=== PATIENT | female | born 1995 | race Hispanic/Latino ===

== ENCOUNTER 2017-08-01 18:28 | Emergency (ER) | payer MEDICAID, SELFPAY ==
[2017-08-01 19:33] LABS: Bilirubin Negative (Negative); Blood, Urine Negative (Negative); Clarity CLEAR (Clear); Glucose, Urine (Dipstick) Negative (Negative); Leukocyte Negative (Negative); Nitrite Negative (Negative); Protein, Urine (Dipstick) Negative (Neg-Trace); Urobilinogen 0.2 mg/dL (0.2-1.0)
[2017-08-01 19:35] LABS: Pregnancy Test - Urine (BHCG) Negative (Negative); Pregu Control Background? CLEAR/WHITE (CLR/WHITE); Pregu Control Bar Appear? YES (CONTROL BAR); Specific Gravity 1.006 (1.002-1.036); Specific Gravity, Urine 1.006 (1.002-1.036)
[2017-08-03 14:35] LABS: Chlamydia by PCR Not Detected (NotDetected); GC by PCR Not Detected (NotDetected)
== END 2017-08-01 20:30 | disposition home or self-care (01) ==
LOC: ERS 18:28
DX: N89.8 Other specified noninflammatory disorders of vagina (principal)
CPT/HCPCS: 81003; 81025; 87086; 87480; 87491; 87510; 87591; 87660; 99284

== ENCOUNTER 2017-08-05 07:36 | Outpatient (CLI) | payer MEDICAID | END 2017-08-05 07:37 | disposition home or self-care (01) | LOC: BICULT 07:36 | PROVIDERS: ATTEND Nurse Practitioner Women's Health | DX: R10.2 Pelvic and perineal pain (principal) | CPT/HCPCS: 76856 ==

== ENCOUNTER 2019-05-07 07:48 | Emergency (ER) | payer MEDICAID ==
[2019-05-07] MEDS ORDERED: Acetaminophen 500 MG TAB ONE (08:08)
[2019-05-07 08:58] LABS: Bilirubin Negative (Negative); Blood, Urine Negative (Negative); Clarity Clear (Clear); Glucose, Urine (Dipstick) Normal (Negative); Leukocyte Negative Leu/uL (Negative); Nitrite Negative (Negative); Protein, Urine (Dipstick) Negative (Neg-Trace); Urobilinogen Normal mg/dL (Less than 2)
[2019-05-07 09:06] LABS: Pregnancy Test - Urine (BHCG) POSITIVE (Negative); Pregu Control Background? CLEAR/WHITE (CLR/WHITE); Pregu Control Bar Appear? YES (CONTROL BAR); Specific Gravity 1.014 (1.002-1.036)
== END 2019-05-07 09:23 | disposition home or self-care (01) ==
LOC: ERS 07:48
DX: O99.89 Other specified diseases and conditions complicating pregnancy, childbirth and the puerperium (principal); M54.5 Low back pain; Z3A.09 9 weeks gestation of pregnancy
CPT/HCPCS: 81003; 81025; 99284

== ENCOUNTER 2019-12-03 14:18 | Day surgery (SDC) | payer OTHER ==
[2019-12-03 14:54] VITALS: BMI 32.4
[2019-12-03 15:04] VITALS: BP 127/71; TEMP 98.5
[2019-12-03] MEDS ORDERED: hydrALAZINE 20 MG/ML VIAL SLOW IVP PRN (15:35)
--- NOTE | 2019-12-03 16:09 | PDOC.FPROB ---
FMR OB H&P: HPI - History of Present Illness Chief Complaint: Low Fluid Indentification: 24 yo @ 36.3 by 13.1 wk US History of Present Illness: Pt presents to L&D after an US at the clinic was concerning for low amniotic fluid. Pt reports that she is feeling well and that she is not experiencing any contractions. She denies PHAM, blurred vision, abdominal pain, edema. Pt endorses movement. Denies LOF, vaginal bleeding, dysuria. Primary Care Physician: Heather Iraheta FMR OB H&P: Current - Care : 2 Para: 1 Gestational age: 36.3 Due date: 12/28/19 Dating Criteria: 13.1 wk sono Course/Complications: complicated by well-controlled chronic HTN, obesity, and history of PreE in previous - OB Labs Blood type: O RH: positive Antibody Screen: negative HIV: negative RPR: negative HepBsAg: negative Rubella: immune Gonorrhea: negative Chlamydia: negative 1 hour gtt: 136 GBS: negative H&H: 12.3/34.8 (11/12/2019) Platelets: 271 (11/12/2019) FMR OB H&P: History - Past Medical History PMH: HTN - OB History OB History: Normal at 41 wks - [facility] [facility] History [facility] History: Periods: irregular Last Pap: normal (08/2016) STIs: hx of chlamydia in 2017 Age of menarche: 11 yrs - Family History Family History: HTN FMR OB H&P: Medications - Current Allergies/Adverse Reactions: Allergies Allergy/AdvReac Type Severity Reaction Status Date / Time No Known Allergies Allergy Verified 12/03/19 14:52 FMR OB H&P: ROS - Review of Systems General: denies: fever/chills Eyes: denies: vision changes Cardiovascular: denies: chest pain Respiratory: denies: shortness of breath Gastrointestinal: denies: abdominal pain Genitourinary (Female): denies: dysuria, vaginal discharge, vaginal pain, vaginal bleeding, contractions Musculoskeletal: denies: swelling FMR OB H&P: Vital Signs - Maternal Vital signs: Vital Signs - First Documented Temp Pulse Resp BP Pulse Ox 98.5 F 86 20 127/71 99 12/03/19 15:02 12/03/19 15:02 12/03/19 15:02 12/03/19 15:02 12/03/19 15:02 - Heart Tones Variability: moderate Acceleration: present Deceleration: absent FMR OB H&P: Physical Exam - Physical Exam General: NAD, awake, alert and oriented HEENT: normocephalic and atraumatic, PERRLA Heart: RRR, normal S1/S2, no murmurs/rubs/gallops, no edema General: CTAB, no respiratory distress, good air movement, no rales/rhonchi, no wheezing, no retractions Abdomen: soft, gravid, non-tender, bowel sound present, no masses Neurological: cranial nerves II through XII intact, sensation to pain,touch and proprioception grossly normal, no focal deficit Skin: no rash, no jaundice Psychiatric: normal mood and affect FMR OB H&P: Results - Imaging Imaging: BPP: 8/8 ALEKS 10.8 Vertex Anterior Placenta FMR OB H&P: A/P - Problem List (1) Chronic hypertension Status: Acute Code(s): I10 - ESSENTIAL (PRIMARY) HYPERTENSION (2) Status: Acute Disposition: 24 yo @ 36.3 wga by 13.1 wk sono who presents from clinic with concerns for oligo Plan: Concerns for Oligo: - Clinic sono concerning for low fluid, so pt was sent to L&D - NST showed reactive strip - Vital signs within normal limits - BPP ordered and was 8/8 with an ALEKS of 10.8 - No s/s of active labor Chronic HTN and hx of PreE in previous - continue routine care - BP within normal range Dispo: BPP 8/8, normal ALEKS, d/c home with labor precautions Discussion: Date/Time: 12/03/19 4247 This H&P was discussed with Dr. Beltran and Dr. Lester who agree with the above documentation and plan. Addendum - Attending - Attending Attestation Date/Time: 12/04/19 1528 I personally evaluated the patient and discussed the management with Dr. Peng. I agree with the History, Examination, Assessment and Plan documented above with any addition or exceptions noted below. Reassuring status. Dc home with return precautions. Has induction date.
--- NOTE | 2019-12-03 16:22 | ULT ---
Exam: Nonstress biophysical profile HISTORY: Oligohydramnios. COMPARISON: none FINDINGS: presentation: Vertex Placenta: Anterior Amniotic fluid index 10.8 cm heart tones 131 bpm Nonstress biophysical profile: tone 2 breathing 2 movements 2 Amniotic fluid 2 Total score 8 out of 8 IMPRESSION: Nonstress biophysical profile with a total score 8 out of 8. Verbal communication w as given to Dr. Peng via the store hand 12/03/2019 at 4:17 PM Code CR
== END 2019-12-03 16:30 | disposition home or self-care (01) ==
LOC: L&D/OP 14:18
PROVIDERS: ATTEND Emergency Medicine
DX: O41.03X0 Oligohydramnios, third trimester, not applicable or unspecified (principal); O10.013 Pre-existing essential hypertension complicating pregnancy, third trimester; O99.213 Obesity complicating pregnancy, third trimester; E66.9 Obesity, unspecified; Z3A.36 36 weeks gestation of pregnancy
CPT/HCPCS: 76819

== ENCOUNTER 2019-12-11 06:34 | Outpatient (CLI) | payer MEDICAID, OTHER ==
[2019-12-12 12:37] LABS: SARS-CoV-2 MS2 Positive; SARS-CoV-2 N Gene Negative; SARS-CoV-2 S Gene Negative; SARS-CoV-2 orf1ab Negative
== END 2019-12-11 06:35 | disposition home or self-care (01) ==
LOC: LABSCS 06:34
PROVIDERS: ATTEND Family Medicine
DX: Z01.812 Encounter for preprocedural laboratory examination (principal); Z11.59 Encounter for screening for other viral diseases
CPT/HCPCS: 87635; U0003

== ENCOUNTER 2019-12-14 18:00 | Inpatient (IN) | payer OTHER ==
[2019-12-14 21:45] VITALS: BMI 32.7
[2019-12-14] MEDS ORDERED: Ondansetron PF 4 MG/2 ML Vial IVP PRN (22:28)
[2019-12-14] MEDS ORDERED: Misoprostol 200 MCG TAB PR PRN (22:28)
[2019-12-14] MEDS ORDERED: Lidocaine 1% (PF) 30 ML VIAL SC PRN (22:28)
[2019-12-14] MEDS ORDERED: Ibuprofen 800 MG TAB PO PRN (22:28)
[2019-12-14] MEDS ORDERED: Carboprost 250 MCG/ML AMP IM PRN (22:28)
[2019-12-14] MEDS ORDERED: Promethazine HCl 25 MG/ML VIAL IM PRN (22:28)
[2019-12-14] MEDS ORDERED: hydrALAZINE 20 MG/ML VIAL SLOW IVP PRN (22:28)
[2019-12-14] MEDS ORDERED: Diphenoxylate HCl/Atropine Tablet PO PRN ×2 (22:28)
[2019-12-14] MEDS ORDERED: Butorphanol Tartrate 1 MG/ML VIAL SLOW IVP PRN (22:28)
[2019-12-14] MEDS ORDERED: Acetaminophen 500 MG TAB PO PRN (22:28)
[2019-12-14] MEDS ORDERED: Methylergonovine 0.2 MG/ML VIAL IM PRN (22:28)
[2019-12-14] MEDS ORDERED: Misoprostol 100 MCG TAB VAG SCH (22:45)
[2019-12-14 23:11] LABS: Hemoglobin 12.6 g/dL (12.0-16.0); Mean Corpuscular Hemoglobin 30.2 pg (27.0-31.0); Mean Corpuscular Volume 86.2 fL (78.0-98.0); Mean Platelet Volume 9.6 fL (7.4-10.4); Platelet Count 234 thou/uL (130-400); RBC Distribution Width 10.9 % (11.5-14.5); Red Blood Cell (RBC) Count 4.19 mill/uL (4.20-5.40)
[2019-12-14] MEDS: Lactated Ringer's 1,000 ML IV SCH (23:11)
--- NOTE | 2019-12-14 23:12 | PDOC.FPROB ---
FMR OB H&P: HPI - History of Present Illness Chief Complaint: mIOL History of Present Illness: 24 y/o @ 38 wks by 13.1 wk raheem presents to L&D for mIOL. Pt states that she has been diagnosed with chronic HTN and has not required treatment with medications. She regularly checks her BPs which runs in the 130s. Her last was complicated by pre-E however, pt denies having pre-E symptoms in this and currently. Pt endorses FM and states that she occasionally feels contractions. She denies VB, VD, and LOF. She had been following up with [facility] for monthly growths which have been normal. FMR OB H&P: Current - Care : 2 Para: 1 Gestational age: 38 Due date: 12/28/2019 Dating Criteria: LMP c/w 13.1 wk sono - OB Labs Blood type: O RH: positive Antibody Screen: negative HIV: negative RPR: negative HepBsAg: negative Rubella: immune Gonorrhea: negative Chlamydia: negative 1 hour gtt: 136 GBS: negative FMR OB H&P: History - Past Medical History PMH: cHTN, obesity - OB History OB History: 1 prior complicated by pre-E - [employer] History [employer] History: Hx of Chlamydia-2017 - Surgical History Sx History: None - Social History Social History: Denies ETOH, tobacco, drug use during . - Family History Family History: Grandparents- HTN FMR OB H&P: Medications - Current Home Medications: Medication Instructions Recorded Confirmed Type Aspirin [Ecotrin] 81 mg PO DAILY 12/14/19 12/14/19 History 21/Iron Fu/Folic Acid 1 tablet PO DAILY 12/14/19 12/14/19 History [ Complete Caplet] Allergies/Adverse Reactions: Allergies Allergy/AdvReac Type Severity Reaction Status Date / Time No Known Allergies Allergy Verified 12/14/19 21:37 FMR OB H&P: ROS - Review of Systems General: denies: fever/chills, fatigue Eyes: denies: vision changes, double vision Cardiovascular: denies: chest pain, palpitation Respiratory: denies: cough, shortness of breath Gastrointestinal: denies: abdominal pain, nausea, vomiting, diarrhea Genitourinary (Female): denies: dysuria, hematuria, polyuria, vaginal discharge , vaginal pain, vaginal bleeding FMR OB H&P: Vital Signs - Maternal Vital signs: Vital Signs - First Documented Temp Pulse Resp BP 98.3 F 85 18 139/81 12/14/19 21:02 12/14/19 21:02 12/14/19 21:02 12/14/19 21:02 - Heart Tones Baseline: 150 Variability: moderate Acceleration: absent Deceleration: absent Category: category 1 [place] contractions every: no ctx FMR OB H&P: Physical Exam - Physical Exam General: NAD HEENT: normocephalic and atraumatic Heart: RRR, normal S1/S2, no edema General: CTAB, no respiratory distress, no rales/rhonchi, no wheezing Abdomen: soft, gravid Skin: good tugor Psychiatric: normal mood and affect - Pelvic Exam SVE: 0/Thick/High Presentation: cephalic FMR OB H&P: A/P - Problem List (1) Encounter for induction of labor Current Visit: Yes Status: Acute Code(s): Z34.90 - ENCNTR FOR SUPRVSN OF NORMAL , UNSP, UNSP TRIMESTER (2) Term Current Visit: Yes Status: Acute Code(s): Z34.90 - ENCNTR FOR SUPRVSN OF NORMAL , UNSP, UNSP TRIMESTER (3) Chronic hypertension Current Visit: Yes Status: Chronic Code(s): I10 - ESSENTIAL (PRIMARY) HYPERTENSION (4) History of chlamydia Current Visit: Yes Status: Acute Code(s): Z86.19 - PERSONAL HISTORY OF OTHER INFECTIOUS AND PARASITIC DISEASES (5) Obesity Current Visit: Yes Status: Acute Code(s): E66.9 - OBESITY, UNSPECIFIED Qualifiers: Obesity type: unspecified obesity type Obesity classification: adult class 1 (BMI 30 - 34.9) Serious obesity comorbidity presence: without serious comorbidity Body mass index: BMI 32.0-32.9 Qualified Code(s): E66.9 - Obesity, unspecified; Z68.32 - Body mass index (BMI) 32.0-32.9, adult Discussion: 24 y/o @ 38 wks by LMP c/w 13.1 wk sono presents to L&D for mIOL. ## Term , mIOL -mIOL d/t cHTN -SVE @ 22:20 0/Thick/High -SVE @ 23:15 same -cytotec started @23:15, will recheck in 3-4 hours -confirmed vertex position with bedside u/s -GBS negative -would like an epidural -FHT in 150s, mod variability, cat 1 -Hep C ordered, not done in labs ## chronic HTN -hx of pre-E in prior -SBPs in the 130s, has not required medication -denies pre-E symptoms -will continue to monitor closely - daily ASA during course ## Obesity -BMI 32.7 ## Hx of Chlamydia - hx of in 2017 -negative on labs Plan: Begin induction of labor with cytotec. This H&P was discussed with Dr. Crespo and Dr. Bartholomew who agree with the above documentation and plan. Addendum - Attending - Attending Attestation Date/Time: 12/15/19 9906 I personally evaluated the patient and discussed the management with Dr. Loya on 12/14/2019 I agree with the History, Examination, Assessment and Plan documented above with any addition or exceptions noted below - 24 yo @ 38 weeks with cHTN here for induction of labor. Denies any PHAM, visual changes or RUQ pain. (+) FM. Denies LOF/VB. Afebrile VSS. SVE 1.5/thick/-3/post. Cat 1 FHTs. A/P: 1) IUP@ 38 weeks with chronic HTN here for medical induction- Admit to L&D. Plan to place cytotec for cervical ripening. Recheck in 3-4 hours.
[2019-12-14 23:53] LABS: Hep B Surf Ag Non-Reactive S/CO (NonReactive); Syphilis Antibody Nonreactive (Nonreactive); Syphilis Antibody Index 0.02 S/CO (<1.00 Non-Reactive)
--- NOTE | 2019-12-15 02:27 | PDOC.OBLPN ---
FMR OB Labor PN: Subj - Interval History Interval History: Resting comfortably in bed. Feeling some cramping with ctx. FMR OB Labor PN: Obj - Maternal Vital signs: BP: 119/73 , ranging in the 130s/70s. FMR OB Labor PN: Exam - Pelvic Exam SVE: 1.5/0/-3 FMR OB Labor PN: Data - Labs Lab results: Laboratory Results - last 24 hr 12/14/19 12/14/19 12/14/19 23:01 23:01 23:01 WBC RBC Hgb Hct MCV MCH MCHC RDW Plt Count MPV Syphilis IgG/IgM Ab Nonreactive Hep Bs Antigen Non-Reactive Blood Type O POSITIVE Antibody Screen NEGATIVE 12/14/19 12/14/19 23:01 23:10 WBC 10.0 RBC 4.19 L Hgb 12.6 Hct 36.1 MCV 86.2 MCH 30.2 MCHC 35.0 RDW 10.9 L Plt Count 234 MPV 9.6 Syphilis IgG/IgM Ab Hep Bs Antigen Blood Type O POSITIVE Antibody Screen FMR OB Labor PN: A/P - Problem List (1) Encounter for induction of labor Current Visit: Yes Status: Acute Code(s): Z34.90 - ENCNTR FOR SUPRVSN OF NORMAL , UNSP, UNSP TRIMESTER (2) Term Current Visit: Yes Status: Acute Code(s): Z34.90 - ENCNTR FOR SUPRVSN OF NORMAL , UNSP, UNSP TRIMESTER (3) Chronic hypertension Current Visit: Yes Status: Chronic Code(s): I10 - ESSENTIAL (PRIMARY) HYPERTENSION (4) History of chlamydia Current Visit: Yes Status: Acute Code(s): Z86.19 - PERSONAL HISTORY OF OTHER INFECTIOUS AND PARASITIC DISEASES (5) Obesity Current Visit: Yes Status: Acute Code(s): E66.9 - OBESITY, UNSPECIFIED Qualifiers: Obesity type: unspecified obesity type Obesity classification: adult class 1 (BMI 30 - 34.9) Serious obesity comorbidity presence: without serious comorbidity Body mass index: BMI 32.0-32.9 Qualified Code(s): E66.9 - Obesity, unspecified; Z68.32 - Body mass index (BMI) 32.0-32.9, adult Discussion: Date/Time: 12/15/19 0225 24 y/o @ 38.1 wks by LMP c/w 13.1 wk raheem presents to L&D for mIOL. ## Term , mIOL -mIOL d/t cHTN -SVE @ 22:20 0/Thick/High -SVE @ 23:15 same, cytotec placed -SVE @ 02:20 1.5/0/-3 -confirmed vertex position with bedside u/s -GBS negative -would like an epidural -FHT: Cat 1, FHR 130s-140s, moderate variability -CTX Q2 min -Hep C ordered, not done in labs ## chronic HTN -hx of pre-E in prior -SBPs in the 130s, has not required medication -denies pre-E symptoms -will continue to monitor closely -daily ASA during course ## Obesity -BMI 32.7 ## Hx of Chlamydia - hx of in 2017 -negative on labs Plan: Will wait on next dose of cytotec until contractions space out. Recheck 4 in hours.
[2019-12-15] MEDS: Misoprostol 100 MCG TAB VAG SCH ×5 (05:13→23:07)
--- NOTE | 2019-12-15 05:55 | PDOC.OBLPN ---
FMR OB Labor PN: Subj - Interval History Interval History: Pt resting comfortably. FMR OB Labor PN: Data - Labs Lab results: Laboratory Results - last 24 hr 12/14/19 12/14/19 12/14/19 23:01 23:01 23:01 WBC RBC Hgb Hct MCV MCH MCHC RDW Plt Count MPV Syphilis IgG/IgM Ab Nonreactive Hep Bs Antigen Non-Reactive Blood Type O POSITIVE Antibody Screen NEGATIVE 12/14/19 12/14/19 23:01 23:10 WBC 10.0 RBC 4.19 L Hgb 12.6 Hct 36.1 MCV 86.2 MCH 30.2 MCHC 35.0 RDW 10.9 L Plt Count 234 MPV 9.6 Syphilis IgG/IgM Ab Hep Bs Antigen Blood Type O POSITIVE Antibody Screen FMR OB Labor PN: A/P - Problem List (1) Encounter for induction of labor Current Visit: Yes Status: Acute Code(s): Z34.90 - ENCNTR FOR SUPRVSN OF NORMAL , UNSP, UNSP TRIMESTER (2) Term Current Visit: Yes Status: Acute Code(s): Z34.90 - ENCNTR FOR SUPRVSN OF NORMAL , UNSP, UNSP TRIMESTER (3) Chronic hypertension Current Visit: Yes Status: Chronic Code(s): I10 - ESSENTIAL (PRIMARY) HYPERTENSION (4) History of chlamydia Current Visit: Yes Status: Acute Code(s): Z86.19 - PERSONAL HISTORY OF OTHER INFECTIOUS AND PARASITIC DISEASES (5) Obesity Current Visit: Yes Status: Acute Code(s): E66.9 - OBESITY, UNSPECIFIED Qualifiers: Obesity type: unspecified obesity type Obesity classification: adult class 1 (BMI 30 - 34.9) Serious obesity comorbidity presence: without serious comorbidity Body mass index: BMI 32.0-32.9 Qualified Code(s): E66.9 - Obesity, unspecified; Z68.32 - Body mass index (BMI) 32.0-32.9, adult Discussion: Date/Time: 12/15/19 0554 24 y/o @ 38.1 wks by LMP c/w 13.1 wk raheem presents to L&D for mIOL. ## Term , mIOL -mIOL d/t cHTN -SVE @ 22:20 0/Thick/High -SVE @ 23:15 same, cytotec placed -SVE @ 02:20 1.5/0/-3 -SVE @ 05:15 same, cytotec placed again, ctx had spaced out -confirmed vertex position with bedside u/s -GBS negative -would like an epidural -FHT: Cat 1, FHR 130s-140s, moderate variability -Hep C ordered, not done in labs ## chronic HTN -hx of pre-E in prior -SBPs in the 130s, has not required medication -denies pre-E symptoms -will continue to monitor closely -daily ASA during course ## Obesity -BMI 32.7 ## Hx of Chlamydia - hx of in 2017 -negative on labs Plan: Recheck in 3-4 hours.
[2019-12-15] MEDS: Lactated Ringer's 1,000 ML IV SCH ×3 (07:20→23:07)
[2019-12-15] MEDS ORDERED: NS w/ Oxytocin 10 units 500 ML IV SCH (10:00)
--- NOTE | 2019-12-15 10:42 | PDOC.LDPN ---
Labor & Delivery Progress Note - Subjective Subjective: comfortable - Objective Vital signs reviewed and normal: yes General: NAD, resting Uterine fundus: non tender Dilation: 1.5 Effacement: 50% Station: -3 FHT: category 1 Procedures: Cook balloon placed Plan: labor augmentation, pitocin for augmentation -: 24 y/o @ 38.1 wks by LMP c/w 13.1 wk sono presents to L&D for mIOL. 1. Term , mIOL due to cHTN Confirmed vertex position with bedside US. GBS negative. FHT was cat 1, FHR 130s -140s, moderate variability. Patient would like an epidural. -F/u hep C ordered, not done in labs -SVE @ 22:20 0/Thick/High -SVE @ 23:15 0/ThickHigh, cytotec placed -SVE @ 02:20 1.5/0/-3, next cytotec held due to tachysystole -SVE @ 05:15 1.5/0/-3, cytotec #2 placed, ctx spaced out -SVE @ 09:30 1.5/50/-3, cook balloon placed Cervix visualized with speculum. White discharge present. Cook balloon placed and 40cc administered to both U/V. Patient reported mild discomfort. Upon recheck at 1000, patient was resting without pain. Cat 1 strip with FHR in 130s and moderate variability. -10:00 Pit 10 units started 2. Chronic HTN SBPs in the 130s. Patient has not required medication. Has a hx of pre-E in prior . -Denies pre-E symptoms -Will continue to monitor closely -Daily ASA during course 3. Obesity BMI 32.7 4. Hx of Chlamydia Hx in 2017. Negative on labs Plan: Continue to monitor
[2019-12-15] MEDS: NS w/ Oxytocin 10 units 500 ML IV SCH (13:30)
--- NOTE | 2019-12-15 13:53 | PDOC.LDPN ---
Labor & Delivery Progress Note - Subjective Subjective: comfortable - Objective Vital signs reviewed and normal: yes General: NAD, resting Uterine fundus: non tender Dilation: 1.5 Effacement: 50% Station: -3 FHT: category 1 [place] contractions every: irregular Plan: continue plan of care -: 24 y/o @ 38.1 wks by LMP c/w 13.1 wk sono presents to L&D for mIOL. 1. Term , mIOL due to cHTN GBS negative. FHT was cat 1, FHR 130s-140s, moderate variability. Patient would like an epidural once experiencing increased pain. -13:50 Pit started -SVE unchanged, cook balloon in with 80 mL in both V/U -Continue serial cervical checks 2. Chronic HTN SBPs in the 130s. Patient has not required medication. Has a hx of pre-E in prior . -Denies pre-E symptoms -Will continue to monitor closely -Daily ASA during course 3. Obesity BMI 32.7 4. Hx of Chlamydia Hx in 2017. Negative on labs 5. Hep C unknown -Lab pending Plan: Continue to monitor
--- NOTE | 2019-12-15 17:28 | PDOC.LDPN ---
Labor & Delivery Progress Note - Subjective Subjective: comfortable (with 4/10 pain during contractions) - Objective Vital signs reviewed and normal: yes General: NAD, resting Uterine fundus: non tender FHT: category 1 [place] contractions every: 5 mins Other exam findings: Cook balloon in place Plan: continue plan of care -: 24 y/o @ 38.1 wks by LMP c/w 13.1 wk sono presents to L&D for mIOL. 1. Term , mIOL due to cHTN GBS negative. FHT was cat 1, FHR 130s-140s, moderate variability. Patient would like an epidural once experiencing increased pain. -Cook balloon in with 80 mL in both V/U -Continue serial cervical checks -Patient reports more painful contractions 4/10 2. Chronic HTN SBPs in the 130s. Patient has not required medication. Has a hx of pre-E in prior . -Denies pre-E symptoms -Will continue to monitor closely -Daily ASA during course 3. Obesity BMI 32.7 4. Hx of Chlamydia Hx in 2017. Negative on labs 5. Hep C unknown -Lab pending Plan: Continue to monitor
--- NOTE | 2019-12-15 18:46 | PDOC.OBLPN ---
FMR OB Labor PN: Subj - Interval History Chief Complaint: mIOL Interval History: resting comfortably. pain at 1-2/10. FMR OB Labor PN: Obj - Maternal Vital signs: BP: have remained stable 128/90s, 79 HR. FMR OB Labor PN: Data - Labs Lab results: Laboratory Results - last 24 hr 12/14/19 12/14/19 12/14/19 23:01 23:01 23:01 WBC RBC Hgb Hct MCV MCH MCHC RDW Plt Count MPV Syphilis IgG/IgM Ab Nonreactive Hep Bs Antigen Non-Reactive Blood Type O POSITIVE Antibody Screen NEGATIVE 12/14/19 12/14/19 23:01 23:10 WBC 10.0 RBC 4.19 L Hgb 12.6 Hct 36.1 MCV 86.2 MCH 30.2 MCHC 35.0 RDW 10.9 L Plt Count 234 MPV 9.6 Syphilis IgG/IgM Ab Hep Bs Antigen Blood Type O POSITIVE Antibody Screen FMR OB Labor PN: A/P - Problem List (1) Encounter for induction of labor Current Visit: Yes Status: Acute Code(s): Z34.90 - ENCNTR FOR SUPRVSN OF NORMAL , UNSP, UNSP TRIMESTER (2) Term Current Visit: Yes Status: Acute Code(s): Z34.90 - ENCNTR FOR SUPRVSN OF NORMAL , UNSP, UNSP TRIMESTER (3) Chronic hypertension Current Visit: Yes Status: Chronic Code(s): I10 - ESSENTIAL (PRIMARY) HYPERTENSION (4) History of chlamydia Current Visit: Yes Status: Acute Code(s): Z86.19 - PERSONAL HISTORY OF OTHER INFECTIOUS AND PARASITIC DISEASES (5) Obesity Current Visit: Yes Status: Acute Code(s): E66.9 - OBESITY, UNSPECIFIED Qualifiers: Obesity type: unspecified obesity type Obesity classification: adult class 1 (BMI 30 - 34.9) Serious obesity comorbidity presence: without serious comorbidity Body mass index: BMI 32.0-32.9 Qualified Code(s): E66.9 - Obesity, unspecified; Z68.32 - Body mass index (BMI) 32.0-32.9, adult Discussion: Date/Time: 12/15/19 1843 24 y/o @ 38.1 wks LMP c/w 13.1 wk sono here for mIOL due to cHTN. ##Term , mIOL d/t cHTN -GBS negative -23:15 0/Thick/High, cytotec #1 -02:15 1.5/0/-3, tachysystole -05:15 1.5/0/-3, cytotec #2 -09:30 1.5/50/-3, balloon placed -13:30 pitocin started, exam unchanged -balloon check @ 18:30, still in place, exam unchanged -FHT: 140s, moderate variability, some acels noted -feeling contractions q2-3mins -pain @ -07/13 -would like epidural when pain increases ## cHTN -SBPs in 120s-130s -denies pre-E sxs -continue to montior -daily ASA during course ## Obesity -BMI 32.7 ## Hep C, unknown -labs pending Plan: recheck balloon @ 21:30 as it that will be the 12hr sara. continue with pitocin, currently @ 16.
--- NOTE | 2019-12-15 22:11 | PDOC.OBLPN ---
FMR OB Labor PN: Subj - Interval History Interval History: resting comfortably in room FMR OB Labor PN: Obj - Maternal Vital signs: BP: 120s/70s FMR OB Labor PN: Data - Labs Lab results: Laboratory Results - last 24 hr 12/14/19 12/14/19 12/14/19 23:01 23:01 23:01 WBC RBC Hgb Hct MCV MCH MCHC RDW Plt Count MPV Syphilis IgG/IgM Ab Nonreactive Hep Bs Antigen Non-Reactive Blood Type O POSITIVE Antibody Screen NEGATIVE 12/14/19 12/14/19 23:01 23:10 WBC 10.0 RBC 4.19 L Hgb 12.6 Hct 36.1 MCV 86.2 MCH 30.2 MCHC 35.0 RDW 10.9 L Plt Count 234 MPV 9.6 Syphilis IgG/IgM Ab Hep Bs Antigen Blood Type O POSITIVE Antibody Screen FMR OB Labor PN: A/P - Problem List (1) Encounter for induction of labor Current Visit: Yes Status: Acute Code(s): Z34.90 - ENCNTR FOR SUPRVSN OF NORMAL , UNSP, UNSP TRIMESTER (2) Term Current Visit: Yes Status: Acute Code(s): Z34.90 - ENCNTR FOR SUPRVSN OF NORMAL , UNSP, UNSP TRIMESTER (3) Chronic hypertension Current Visit: Yes Status: Chronic Code(s): I10 - ESSENTIAL (PRIMARY) HYPERTENSION (4) History of chlamydia Current Visit: Yes Status: Acute Code(s): Z86.19 - PERSONAL HISTORY OF OTHER INFECTIOUS AND PARASITIC DISEASES (5) Obesity Current Visit: Yes Status: Acute Code(s): E66.9 - OBESITY, UNSPECIFIED Qualifiers: Obesity type: unspecified obesity type Obesity classification: adult class 1 (BMI 30 - 34.9) Serious obesity comorbidity presence: without serious comorbidity Body mass index: BMI 32.0-32.9 Qualified Code(s): E66.9 - Obesity, unspecified; Z68.32 - Body mass index (BMI) 32.0-32.9, adult Discussion: Date/Time: 12/15/19 7980 24 y/o @ 38.1 wks LMP c/w 13.1 wk sono here for mIOL due to cHTN. ##Term , mIOL d/t cHTN -GBS negative -23:15 0/Thick/High, cytotec #1 -02:15 1.5/0/-3, tachysystole -05:15 1.5/0/-3, cytotec #2 -09:30 1.5/50/-3, balloon placed -13:30 pitocin started, exam unchanged -balloon check @ 18:30, still in place, exam unchanged -balloon removed @ 22:00, exam at this time unchanged, pitocin @ 20U -23:00 recheck was 50/-3 -FHT: 140s, moderate variability, some acels noted -feeling contractions q2-3mins -pain @ 1-10 -would like epidural when pain increases ## cHTN -SBPs in 120s-130s -denies pre-E sxs -continue to montior -daily ASA during course ## Obesity -BMI 32.7 ## Hep C, unknown -labs pending Plan: continue with current plan. will recheck in 3-4 hours.
--- NOTE | 2019-12-16 02:17 | PDOC.LDPN ---
Labor & Delivery Progress Note - Subjective Subjective: comfortable - Objective Vital signs reviewed and normal: yes General: NAD SVE: /- FHT: category 1 [place] contractions every: q2-3 min AROM: clear fluid - Assessment (1) Encounter for induction of labor Code(s): Z34.90 - ENCNTR FOR SUPRVSN OF NORMAL , UNSP, UNSP TRIMESTER Current Visit: Yes Status: Acute (2) Term Code(s): Z34.90 - ENCNTR FOR SUPRVSN OF NORMAL , UNSP, UNSP TRIMESTER Current Visit: Yes Status: Acute (3) Chronic hypertension Code(s): I10 - ESSENTIAL (PRIMARY) HYPERTENSION Current Visit: Yes Status: Chronic (4) History of chlamydia Code(s): Z86.19 - PERSONAL HISTORY OF OTHER INFECTIOUS AND PARASITIC DISEASES Current Visit: Yes Status: Acute (5) Obesity Code(s): E66.9 - OBESITY, UNSPECIFIED Current Visit: Yes Status: Acute Qualifiers: Obesity type: unspecified obesity type Obesity classification: adult class 1 (BMI 30 - 34.9) Serious obesity comorbidity presence: without serious comorbidity Body mass index: BMI 32.0-32.9 Qualified Code(s): E66.9 - Obesity, unspecified; Z68.32 - Body mass index (BMI) 32.0-32.9, adult -: A/P: 1) IUP@ 38.2 weeks undergoing induction for cHTN- SVE -2 AROM clear fluid Pitocin @20 mu Recheck in 2 hours; if no change, will place IUPC.
[2019-12-16] MEDS ORDERED: Fentanyl 4 mcg/Bup 0.1% Cadd 100 ML ONE (02:25)
[2019-12-16] MEDS: Misoprostol 100 MCG TAB VAG SCH ×4 (02:39→11:52)
[2019-12-16] MEDS ORDERED: Lactated Ringer's 500 ML IV PRN (03:04)
[2019-12-16] MEDS ORDERED: Acetaminophen 325 MG TAB PO PRN (03:04)
[2019-12-16] MEDS ORDERED: diphenhydrAMINE 50 MG/ML VIAL IVP PRN (03:04)
[2019-12-16] MEDS ORDERED: Ondansetron PF 4 MG/2 ML Vial IVP PRN (03:04)
[2019-12-16] MEDS ORDERED: EPHEDRINE 25 MG/5 ML SYRINGE SLOW IVP PRN (03:04)
[2019-12-16] MEDS ORDERED: Naloxone HCl 0.4 mg/ml Vial IVP PRN ×2 (03:04)
[2019-12-16] MEDS ORDERED: Promethazine HCl 25 MG/ML VIAL IM PRN (03:04)
[2019-12-16] MEDS ORDERED: Fentanyl 4 mcg/Bupivacaine 0.1% Cassette 100 ML EPIDURAL SCH (03:15)
[2019-12-16] MEDS ORDERED: Communication Order-Pharmacy FS SCH (03:15)
[2019-12-16] MEDS: Lactated Ringer's 1,000 ML IV SCH (05:04)
[2019-12-16] MEDS ORDERED: Preparation H Ointment 28 GM TUBE PR PRN (06:17)
[2019-12-16] MEDS ORDERED: Benzocaine-Menthol 82.5 ML CAN TOP PRN (06:17)
[2019-12-16] MEDS ORDERED: Milk Of Magnesia 30 ML UDCUP PO PRN (06:17)
[2019-12-16] MEDS ORDERED: Bisacodyl 10 MG SUPP PR PRN (06:17)
[2019-12-16 06:21] LABS: Hep C IgG Ab Non-Reactive (NonReactive); Hep C Index 0.06 S/CO (0-0.79)
[2019-12-16] MEDS: NS / Oxytocin 40 units/1000ml 1,000 ML IV PRN ×2 (06:36→08:06)
--- NOTE | 2019-12-16 06:39 | PDOC.OPDEL ---
OB Operative/Delivery Note Delivery Dr/Surgeon: Esequiel Esqueda Selli Pre-Delivery Diagnosis: medically indicated induction Anesthesia: epidural - Additional Findings/Plan Placenta delivered: manual removal Repaired Obstetrical Laceration: none Compilations/Other Findings: Delivering Physician: Taye Attending: Dr. Bartholomew Procedure: Spontaneous Vaginal Delivery Anesthesia: epidural QBL: 100 ml Pre-op Diagnosis: 1. Term intrauterine in labor, mIOL 2. cHTN 3. Obesity 4. Hx of Chylamidia, 2017 Post-op Diagnosis: 1. Term intrauterine , delivered 2. same as above Indications: A 24y/o female presents to L&D for induction due to cHTN. Delivery Note: This is 24 yo F @ 38.2 wks who delivered a viable M infant at 06:07 on 12/16/2019. Following an uneventful antepartum course, a vigorous M was delivered over an intact perineum in the occipitoposterior position. Anterior Shoulder and then remainder of the body delivered. No nuchal cord. The head was held down and mouth and nares were bulb suctioned. Cord clamped after delayed cord clamping and cut and cord blood collected. Placenta delivered intact in the Dang presentation with a 3 vessel cord noted. Fundal massage was performed and the fundus was firm. The cervix and vagina were inspected and found to be free of lacerations. Infant went to nursery in good condition for routine care. Apgars were 8/9 at 1 & 5 minutes, respectively. Patient tolerated delivery well and went to after routine recovery/care. Addendum - Attending - Attending Attestation Date/Time: 12/16/19 0831 I was present and supervised the of a viable male in OP position to this 24 yo @38.2 weeks induced for cHTN. Apgars 8/9. Placenta delivered spontaneously and intact. 3V cord. No epis or lacerations. Mother and in stable condition. Residents: Ricardo
[2019-12-16] MEDS: Docusate Calcium (SURFAK) 240 MG CAP PO SCH ×2 (08:06→22:11)
[2019-12-16] MEDS: Ferrous Sulfate 325 MG TAB PO SCH ×2 (11:27→16:44)
[2019-12-16] MEDS: NS w/ Oxytocin 10 units 500 ML IV SCH (11:53)
[2019-12-16] MEDS: Ibuprofen 800 MG TAB PO PRN (16:12)
[2019-12-17] MEDS: Ibuprofen 800 MG TAB PO PRN ×2 (00:18→08:36)
--- NOTE | 2019-12-17 06:43 | PDOC.PP ---
Post Progress Note Post Day #: 1 Subjective: Pain well controlled with meds. Bottlefeeding. Ambulating and tolerating PO. Would like to go home today if possible. PO intake tolerated: yes Flatus: yes Ambulation: yes Vital Signs (12 hours) Temp Pulse Resp BP Pulse Ox 12/17/19 05:20 98.5 F 80 16 122/70 12/17/19 00:20 98.5 F 82 15 125/60 12/16/19 19:07 98.2 F 84 16 121/66 98 Weight Weight 94.801 kg - Physical Examination General: NAD Cardiovascular: no m/r/g, RRR Respiratory: clear to auscultation bilaterally, non-labored breathing Abdominal: + bowel sounds Neurological: no gross focal deficits Psychiatric: A&Ox3, normal affect Result Diagrams: 12/14/19 23:01 Additional Labs: Post Labs Blood Type O POSITIVE 12/14/19 23:10 Hep Bs Antigen Non-Reactive S/CO (NonReactive) 12/14/19 23:01 - Assessment/Plan sIUP, delivered - Continue routine PP care - F/u at [facility] in 1 wk - Contraception: Would like referral for tubal ligation Chronic HTN - BPs <140/90 Dispo: pending babys bili
[2019-12-17] MEDS: Ferrous Sulfate 325 MG TAB PO SCH ×2 (07:57→09:03)
[2019-12-17 08:35] VITALS: BP 122/57; TEMP 98.1
[2019-12-17] MEDS: Docusate Calcium (SURFAK) 240 MG CAP PO SCH (08:36)
== END 2019-12-17 13:20 | disposition home or self-care (01) | DRG 807 ==
LOC: L&D 20:40 → 3SE 12-16 10:02
PROVIDERS: ADMIT Family Medicine; ATTEND Family Medicine
PROC: 10E0XZZ Delivery of Products of Conception, External Approach (ICD-10-PCS; principal; 2019-12-16)
PROC: 10907ZC Drainage of Amniotic Fluid, Therapeutic from Products of Conception, Via Natural or Artificial Opening (ICD-10-PCS; 2019-12-16)
DX: O10.92 Unspecified pre-existing hypertension complicating childbirth (principal); Z37.0 Single live birth; Z3A.38 38 weeks gestation of pregnancy; O99.214 Obesity complicating childbirth; E66.9 Obesity, unspecified
CPT/HCPCS: 36415; 51701; 85027; 86780; 86803; 86850; 86900; 86901; 87340; 88307; J2405; J2590

== ENCOUNTER 2020-06-03 14:12 | Emergency (ER) | payer OTHER ==
[2020-06-03] MEDS ORDERED: Ketorolac Tromethamine 30 MG/ML VIAL ONE (14:29)
--- NOTE | 2020-06-03 15:39 | RAD ---
Right foot 3 views HISTORY: Right foot pain. FINDINGS: Lisfranc joint alignment is anatomic. Plantar arch is maintained. No acute fracture or dislocation. IMPRESSION : No abnormalities are demonstrated.
== END 2020-06-03 15:57 | disposition home or self-care (01) ==
LOC: ERS 14:12
DX: S93.601A Unspecified sprain of right foot, initial encounter (principal); X58.XXXA Exposure to other specified factors, initial encounter
CPT/HCPCS: 96372; J1885